=== PATIENT | male | born 1985 | race Hispanic/Latino ===

== ENCOUNTER → 2018-10-15 | Outpatient (CLI) | payer OTHER ==
--- NOTE | 2018-10-15 13:55 | Diagnostic Imaging Report ---
Exam: Foot radiographs-3 views Clinical History: Type 2 DM, foot ulcer. Comparison: None. Findings: There has been amputation through the distal aspect of the fifth metatarsal. There is soft tissue edema along the amputation site. There is possible erosion along the distal aspect of the fifth metatarsal. No evidence of periosteal reaction. No evidence of acute fracture or malalignment. Scattered mild degenerative changes. Impression: Amputation through the distal aspect of the fifth metatarsal with possible bony erosion and surrounding soft tissue edema. No significant periosteal reaction. Findings are non-specific but could represent osteomyelitis and MRI of the foot is suggested for further evaluation. Signed by: Dr. Kristina Bang MD on 10/15/2018 1:52 PM
[2018-10-15 14:45] LABS: BASOPHILS % 0.2 % (0.0-1.0); EOSINOPHILS # (AUTO) 0.1 (0.0-0.4); HEMATOCRIT 39.1 % (38.2-49.6); HEMOGLOBIN 13.7 g/dL (14.0-18.0); LYMPHOCYTES # (AUTO) 1.6 (1.0-3.2); LYMPHOCYTES % 32.3 % (18.0-39.1); MEAN CORPUSCULAR HEMOGLOBIN 30.4 pg (28-32); MEAN CORPUSCULAR VOLUME 86.9 fL (81-99); MONOCYTES # (AUTO) 0.6 (0.2-0.8); MONOCYTES % 12.4 % (4.4-11.3); NEUTROPHILS # (AUTO) 2.7 (2.1-6.9); NEUTROPHILS % 53.9 % (38.7-80.0); PLATELET COUNT 266 x10e3/uL (140-360); RED CELL DISTRIBUTION WIDTH 12.1 % (11.7-14.4)
[2018-10-15 15:07] LABS: ALANINE AMINOTRANSFERASE 17 IU/L (0-55); ALBUMIN/GLOBULIN RATIO 1.6 (0.8-2.0); ALKALINE PHOSPHATASE 69 IU/L (40-150); ANION GAP 11.9 mmol/L (8-16); BLOOD UREA NITROGEN 22 mg/dL (7-26); BUN/CREATININE RATIO 26 (6-25); CALCIUM 9.5 mg/dL (8.4-10.2); CARBON DIOXIDE 27 mmol/L (22-29); CHLORIDE 97 mmol/L (98-107); CREATININE, SERUM 0.84 mg/dL (0.72-1.25); EST GLOMERULAR FILTRATION RATE > 60 ML/MIN (60-); GLUCOSE 283 mg/dL (74-118); POTASSIUM 3.9 mmol/L (3.5-5.1); SODIUM 132 mmol/L (136-145)
== END ==
LOC: RAD 12:27
PROVIDERS: ATTEND Family Medicine
DX: E11.621 Type 2 diabetes mellitus with foot ulcer (principal)
CPT/HCPCS: 36415; 80053; 82948; 83036; 84134; 85025; 87071; 87075; 87205